=== PATIENT | female | born 1990 | race Caucasian/White ===

== ENCOUNTER 2016-12-09 16:11 | Emergency (ER) | payer OTHER ==
[~2016-12-09] VITALS: Ht 170.1 cm; Wt 63.5 kg
[~2016-12-09 16:11] MED LIST: ANAPROX DS550 MG PO; BACTRIM DS 8001 TA1 PO; MACROBID100 M1 PO; NKHM; PHENERGAN25 MG RC
[2016-12-09] MEDS ORDERED: MONO-LINYAH 281 EACH PO (16:31)
[2016-12-09] MEDS ORDERED: NAPROSYN500 MG PO (16:45)
[2016-12-09] MEDS ORDERED: AMOXICILLIN500 M2 PO (16:45)
== END 2016-12-09 16:49 | disposition home or self-care (01) ==
LOC: ED 16:11
DX: K08.89 Other specified disorders of teeth and supporting structures (principal); F17.200 Nicotine dependence, unspecified, uncomplicated

== ENCOUNTER 2017-03-18 10:36 | Emergency (ER) | payer OTHER ==
[~2017-03-18] VITALS: Ht 170.1 cm; Wt 61.2 kg
[~2017-03-18 10:36] MED LIST changes: +AMOXICILLIN500 M2 PO; +MONO-LINYAH 281 EACH PO; +NAPROSYN500 MG PO
[2017-03-18] MEDS ORDERED: BUPRENORPHINE HY8 MG SL (10:43)
[2017-03-18] MEDS ORDERED: BACTRIM DS 8001 TA1 PO (10:51)
[2017-03-18] MEDS ORDERED: KEFLEX500 M1 PO (10:51)
[2017-03-18] MEDS ORDERED: NAPROSYN500 MG PO (10:51)
== END 2017-03-18 11:02 | disposition home or self-care (01) ==
LOC: ED 10:36
DX: L02.413 Cutaneous abscess of right upper limb (principal); R03.0 Elevated blood-pressure reading, without diagnosis of hypertension; F17.200 Nicotine dependence, unspecified, uncomplicated

== ENCOUNTER 2018-10-17 22:40 | Emergency (ER) | payer OTHER ==
[~2018-10-17] VITALS: Ht 170.1 cm; Wt 68.0 kg
[~2018-10-17 22:40] MED LIST changes: +BUPRENORPHINE HY8 MG SL; +KEFLEX500 M1 PO
== END 2018-10-17 22:59 | disposition home or self-care (01) ==
LOC: ED 22:40
DX: O99.353 Diseases of the nervous system complicating pregnancy, third trimester (principal); G57.11 Meralgia paresthetica, right lower limb; Z3A.25 25 weeks gestation of pregnancy; Z79.2 Long term (current) use of antibiotics; Z79.899 Other long term (current) drug therapy

== ENCOUNTER 2019-01-16 12:30 | Emergency (ER) | payer OTHER ==
[~2019-01-16] VITALS: Ht 170.1 cm; Wt 72.6 kg
[2019-01-16 13:23] LABS: BILIRUBIN NEGATIVE (NEGATIVE); BLOOD 2+ (NEGATIVE); CLARITY SL CLOUDY (CLEAR); COLOR YELLOW (YELLOW); GLUCOSE NEGATIVE (NEGATIVE); KETONE NEGATIVE (NEGATIVE); LEUKO ESTERASE 2+ (NEGATIVE); NITRITE NEGATIVE (NEGATIVE); UROBILINOGEN 0.2 E.U./dl (0.2-1.0)
[2019-01-16 13:49] LABS: BACTERIA 2+; WBC TNTC wbc/hpf (0-5)
[2019-01-16] MEDS ORDERED: CEPHALEXIN500 M1 PO (14:05)
== END 2019-01-16 14:17 | disposition home or self-care (01) ==
LOC: ED 12:30
PROVIDERS: Nurse Practitioner Family
DX: O23.43 Unspecified infection of urinary tract in pregnancy, third trimester (principal); Z3A.34 34 weeks gestation of pregnancy; Z79.2 Long term (current) use of antibiotics; Z79.899 Other long term (current) drug therapy

== ENCOUNTER → 2019-10-15 | Outpatient (CLI) | payer OTHER ==
[~2019-10-15] MED LIST changes: +CEPHALEXIN500 M1 PO
== END | disposition home or self-care (01) ==
LOC: CARD 08:49
DX: Z51.81 Encounter for therapeutic drug level monitoring (principal); Z79.899 Other long term (current) drug therapy

== ENCOUNTER → 2019-10-23 | Outpatient (CLI) | payer OTHER | END | disposition home or self-care (01) | LOC: CARD 09:00 | DX: I34.1 Nonrheumatic mitral (valve) prolapse (principal); I10 Essential (primary) hypertension; R94.31 Abnormal electrocardiogram [ECG] [EKG] ==